=== PATIENT | female | born 1965 | race Caucasian/White ===

== ENCOUNTER 2017-12-11 16:35 | Emergency (ER) | payer OTHER ==
[~2017-12-11] VITALS: Ht 162.6 cm; Wt 102.0 kg
[2017-12-11 17:04] LABS: HEMATOCRIT 34.7 % (36.0-46.0); HEMOGLOBIN 11.9 G/DL (11.9-15.5); MCH 34.9 PG (29.0-34.0); MCHC 34.3 G/DL (30.0-36.0); MCV 101.8 FL (83-99); PLATELET COUNT 374 K/uL (156-360); RBC DIS.WIDTH-CV 13.3 % (11.8-14.6); RBC DIS.WIDTH-SD 49.4 % (39-53); RED BLOOD COUNT 3.41 M/uL (3.80-5.20)
[2017-12-11 17:18] LABS: ALBUMIN 3.8 g/dL (3.2-4.8); CHLORIDE 106 mEq/L (99-109); POTASSIUM 3.6 mEq/L (3.7-5.4); SODIUM 139 mEq/L (136-147)
[2017-12-11 17:20] LABS: GLUCOSE 99 mg/dL (70-99)
[2017-12-11 17:21] LABS: TOTAL PROTEIN 7.1 g/dL (6.4-8.3)
[2017-12-11 17:22] LABS: TOTAL BILIRUBIN 1.2 mg/dL (0.0-1.0)
[2017-12-11 17:24] LABS: ALKALINE PHOSPHATASE 185 IU/L (3-129); CREATININE 0.7 mg/dL (0.6-1.3)
[2017-12-11 17:25] LABS: UREA NITROGEN (BUN) 14 mg/dL (9-23)
[2017-12-11 17:26] LABS: AST (GOT) 26 IU/L (2-34)
[2017-12-11 17:27] LABS: ALT (GPT) 15 IU/L (3-49)
[2017-12-11 17:30] LABS: GFR ESTIMATE (CALCULATED) > 59 mL/min/
[2017-12-11 20:05] VITALS: BP 130/95
== END 2017-12-11 20:05 | disposition home or self-care (01) ==
LOC: EME 16:35
DX: S93.402A Sprain of unspecified ligament of left ankle, initial encounter (principal); M25.552 Pain in left hip; M54.9 Dorsalgia, unspecified; M79.89 Other specified soft tissue disorders; W19.XXXA Unspecified fall, initial encounter; R05 Cough
CPT/HCPCS: 71046; 73610; 80053; 81003; 85027; 99281; 99284